=== PATIENT | male | born 1975 | race Caucasian/White ===

== ENCOUNTER 2021-08-03 13:51 | Inpatient (IN) | payer OTHER ==
[2021-08-03 15:28] VITALS: BMI 30.4
[2021-08-03] MEDS ORDERED: MAG HYDROX/AL HYDROX/SIMETH 30 ML UNIT-DOSE CUP PO PRN (15:43)
[2021-08-03] MEDS ORDERED: METHOCARBAMOL 500 MG TABLET PO PRN (15:43)
[2021-08-03] MEDS ORDERED: ACETAMINOPHEN 325 MG TABLET (FP) PO PRN ×2 (15:43)
[2021-08-03] MEDS ORDERED: BENZOCAINE/MENTHOL (CHLORASEPTIC ) LOZENGE MM PRN (15:43)
[2021-08-03] MEDS ORDERED: IBUPROFEN 600 MG TABLET (FP) PO PRN (15:43)
[2021-08-03] MEDS ORDERED: DICYCLOMINE HCL 10 MG CAPSULE PO PRN (15:43)
[2021-08-03] MEDS ORDERED: ONDANSETRON *ODT* 4 MG TABLET SL PRN (15:43)
[2021-08-03] MEDS ORDERED: BISMUTH SUBSALICYLATE 524 MG/30 ML PO PRN (15:43)
[2021-08-03] MEDS ORDERED: MAGNESIUM CITRATE 300 ML BOTTLE PO PRN (15:43)
[2021-08-03] MEDS ORDERED: MAGNESIUM HYDROX 2400MG/30ML ORAL SUSPENSION 30 ML CUP PO PRN (15:43)
[2021-08-03] MEDS ORDERED: BUPRENORPHINE HCL 150 MCG, BUPRENORPHINE HCL 75 MCG BC PRN (15:43)
[2021-08-03] MEDS ORDERED: LOPERAMIDE HCL 2 MG CAPSULE PO PRN (15:43)
[2021-08-03] MEDS ORDERED: IBUPROFEN 400 MG TABLET (FP) PO PRN (15:43)
[2021-08-03] MEDS ORDERED: diazePAM 5 MG TABLET PO PRN (15:43)
[2021-08-03] MEDS ORDERED: NICOTINE 10 MG CARTRIDGE (INHALER) IH PRN (15:43)
[2021-08-03] MEDS ORDERED: cloNIDine HCL 0.1 MG TABLET PO ONE (16:30)
[2021-08-03] MEDS ORDERED: BUPRENORPHINE HCL 150 MCG, BUPRENORPHINE HCL 75 MCG BC ONE (17:00)
[2021-08-03 17:30] VITALS: BP 138/80; PULSE 73; TEMP 97.8
[2021-08-03] MEDS ORDERED: BUPRENORPHINE HCL 150 MCG FILM BC ONE (17:43)
[2021-08-03] MEDS ORDERED: BUPRENORPHINE HCL 75 MCG FILM BC ONE (17:44)
[2021-08-03] MEDS: hydrOXYzine PAMOATE 25 MG CAPSULE (FP) PO SCH ×2 (17:53→17:58)
[2021-08-03] MEDS ORDERED: cloNIDine HCL 0.1 MG TABLET PO PRN (19:43)
[2021-08-03] MEDS ORDERED: MELATONIN 5 MG TABLETS PO SCH (22:00)
[2021-08-03] MEDS ORDERED: THIAMINE HCL 100 MG TABLET (FP) PO SCH (22:00)
[2021-08-04] MEDS ORDERED: BUPRENORPHINE HCL 150 MCG, BUPRENORPHINE HCL 75 MCG BC PRN
[2021-08-04] MEDS ORDERED: BUPRENORPHINE HCL 150 MCG, BUPRENORPHINE HCL 75 MCG BC SCH (06:00)
[2021-08-04] MEDS ORDERED: PANTOPRAZOLE 40 MG TABLET PO SCH (10:00)
[2021-08-04] MEDS ORDERED: PRENATAL VITAMINS W/ FOLIC ACID TABLET (FP) PO SCH (10:00)
[2021-08-05] MEDS ORDERED: BUPRENORPHINE HCL 450 MCG FILM BC SCH (06:00)
[2021-08-06] MEDS ORDERED: BUPRENORPHINE/NALOXONE 4 MG/1 MG FILM PACKET SL SCH (06:00)
[2021-08-07] MEDS ORDERED: BUPRENORPHINE/NALOXONE 8 MG/2 MG FILM PACKET SL ONE (06:00)
== END 2021-08-03 19:49 | disposition left against medical advice (07) | DRG 894 ==
LOC: YASAS 13:51 → Y6N 15:24
PROVIDERS: ADMIT Allergy & Immunology; ATTEND Surgery
PROC: HZ2ZZZZ Detoxification Services for Substance Abuse Treatment (ICD-10-PCS; principal; 2021-08-03)
DX: F11.23 Opioid dependence with withdrawal (principal); F14.20 Cocaine dependence, uncomplicated; F15.20 Other stimulant dependence, uncomplicated; F17.210 Nicotine dependence, cigarettes, uncomplicated; Z28.310 Unvaccinated for COVID-19; Z28.9 Immunization not carried out for unspecified reason
CPT/HCPCS: 87811; C9803-CS; J0735; U0003; U0005

== ENCOUNTER 2021-08-03 21:46 | Inpatient (IN) | payer OTHER ==
[2021-08-03] MEDS ORDERED: ONDANSETRON *ODT* 4 MG TABLET SL PRN (23:05)
[2021-08-03] MEDS ORDERED: IBUPROFEN 400 MG TABLET (FP) PO PRN (23:05)
[2021-08-03] MEDS ORDERED: BENZOCAINE/MENTHOL (CHLORASEPTIC ) LOZENGE MM PRN (23:05)
[2021-08-03] MEDS ORDERED: ACETAMINOPHEN 325 MG TABLET (FP) PO PRN ×2 (23:05)
[2021-08-03] MEDS ORDERED: METHOCARBAMOL 500 MG TABLET PO PRN (23:05)
[2021-08-03] MEDS ORDERED: MAGNESIUM HYDROX 2400MG/30ML ORAL SUSPENSION 30 ML CUP PO PRN (23:05)
[2021-08-03] MEDS ORDERED: MAG HYDROX/AL HYDROX/SIMETH 30 ML UNIT-DOSE CUP PO PRN (23:05)
[2021-08-03] MEDS ORDERED: NICOTINE POLACRILEX 2 MG GUM BUC PRN (23:05)
[2021-08-03] MEDS ORDERED: IBUPROFEN 600 MG TABLET (FP) PO PRN (23:05)
[2021-08-03] MEDS ORDERED: NICOTINE 10 MG CARTRIDGE (INHALER) IH PRN (23:05)
[2021-08-03] MEDS ORDERED: BISMUTH SUBSALICYLATE 524 MG/30 ML PO PRN (23:05)
[2021-08-03] MEDS ORDERED: MAGNESIUM CITRATE 300 ML BOTTLE PO PRN (23:05)
[2021-08-03] MEDS ORDERED: DICYCLOMINE HCL 10 MG CAPSULE PO PRN (23:05)
[2021-08-03] MEDS ORDERED: hydrOXYzine PAMOATE 25 MG CAPSULE (FP) PO PRN (23:05)
[2021-08-03] MEDS ORDERED: LOPERAMIDE HCL 2 MG CAPSULE PO PRN (23:05)
[2021-08-04] MEDS: MELATONIN 5 MG TABLETS PO PRN ×2 (02:25→22:51)
[2021-08-04] MEDS ORDERED: cloNIDine HCL 0.1 MG TABLET PO PRN (09:46)
[2021-08-04 10:20] LABS: HEMATOCRIT 44.1 % (35.4-49); MCH 25.1 pg (25.7-33.7); MCHC 31.7 g/dl (32.0-35.9); MEAN PLT VOLUME 8.7 fl (7.5-11.1); PLATELET COUNT 376 10^3/uL (134-434); RBC 5.59 M/mm3 (4.00-5.60); RDW 18.4 % (11.9-15.9); WHITE BLOOD COUNT 9.4 K/mm3 (4.0-10.0)
[2021-08-04] MEDS ORDERED: methaDONE HCL 10 MG TABLET (FOR DETOX USE ONLY) PO ONE (10:30)
[2021-08-04] MEDS: PRENATAL VITAMINS W/ FOLIC ACID TABLET (FP) PO SCH (10:34)
[2021-08-04] MEDS: PANTOPRAZOLE 40 MG TABLET PO SCH (10:34)
[2021-08-04 10:36] LABS: BLOOD UREA NITROGEN 5.5 mg/dL (7-18); CALCIUM 8.8 mg/dL (8.5-10.1)
[2021-08-04 10:39] LABS: CREATININE 1.1 mg/dL (0.55-1.3)
[2021-08-04 10:41] LABS: BILIRUBIN,TOTAL 0.7 mg/dL (0.2-1); TOT PROT 6.3 g/dl (6.4-8.2)
[2021-08-04] MEDS: diazePAM 5 MG TABLET PO PRN (18:07)
[2021-08-04] MEDS: THIAMINE HCL 100 MG TABLET (FP) PO SCH (22:51)
[2021-08-05] MEDS ORDERED: methaDONE HCL 10 MG TABLET (FOR DETOX USE ONLY) ONE (08:58)
[2021-08-05] MEDS: diazePAM 5 MG TABLET PO PRN ×2 (11:08→22:50)
[2021-08-05] MEDS: PANTOPRAZOLE 40 MG TABLET PO SCH (11:08)
[2021-08-05] MEDS: PRENATAL VITAMINS W/ FOLIC ACID TABLET (FP) PO SCH (11:08)
[2021-08-05] MEDS: MELATONIN 5 MG TABLETS PO PRN (22:50)
[2021-08-05] MEDS: THIAMINE HCL 100 MG TABLET (FP) PO SCH (22:50)
[2021-08-06] MEDS ORDERED: methaDONE HCL 10 MG TABLET (FOR DETOX USE ONLY) PO ONE (10:00)
[2021-08-06] MEDS: PRENATAL VITAMINS W/ FOLIC ACID TABLET (FP) PO SCH (10:52)
[2021-08-06] MEDS: diazePAM 5 MG TABLET PO PRN ×3 (10:53→22:40)
[2021-08-06] MEDS: PANTOPRAZOLE 40 MG TABLET PO SCH (10:53)
[2021-08-06] MEDS: MELATONIN 5 MG TABLETS PO PRN (22:40)
[2021-08-06] MEDS: THIAMINE HCL 100 MG TABLET (FP) PO SCH (22:40)
[2021-08-07] MEDS ORDERED: methaDONE HCL 10 MG TABLET (FOR DETOX USE ONLY) ONE (08:51)
[2021-08-07] MEDS: PRENATAL VITAMINS W/ FOLIC ACID TABLET (FP) PO SCH (09:36)
[2021-08-07] MEDS: PANTOPRAZOLE 40 MG TABLET PO SCH (09:36)
[2021-08-07] MEDS: diazePAM 5 MG TABLET PO PRN ×3 (09:37→22:39)
[2021-08-07] MEDS: THIAMINE HCL 100 MG TABLET (FP) PO SCH (22:48)
[2021-08-07] MEDS: MELATONIN 5 MG TABLETS PO PRN (22:48)
[2021-08-08] MEDS ORDERED: methaDONE HCL 10 MG TABLET (FOR DETOX USE ONLY) PO ONE (10:00)
[2021-08-08] MEDS: PANTOPRAZOLE 40 MG TABLET PO SCH (10:43)
[2021-08-08] MEDS: PRENATAL VITAMINS W/ FOLIC ACID TABLET (FP) PO SCH (10:44)
[2021-08-08] MEDS: THIAMINE HCL 100 MG TABLET (FP) PO SCH (22:49)
[2021-08-08] MEDS: MELATONIN 5 MG TABLETS PO PRN (22:49)
[2021-08-09] MEDS: PRENATAL VITAMINS W/ FOLIC ACID TABLET (FP) PO SCH (09:20)
[2021-08-09] MEDS: PANTOPRAZOLE 40 MG TABLET PO SCH (09:20)
[2021-08-09 09:37] VITALS: BP 120/68; PULSE 90; TEMP 98
== END 2021-08-09 09:45 | disposition home or self-care (01) | DRG 895 ==
LOC: YASAS 21:46 → UNDOADMIN 23:01 → Y3N 23:01
PROVIDERS: ADMIT Allergy & Immunology; ATTEND Surgery
PROC: HZ42ZZZ Group Counseling for Substance Abuse Treatment, Cognitive-Behavioral (ICD-10-PCS; principal; 2021-08-03)
DX: F11.20 Opioid dependence, uncomplicated (principal); U07.1 COVID-19; F14.10 Cocaine abuse, uncomplicated; F17.210 Nicotine dependence, cigarettes, uncomplicated; K21.9 Gastro-esophageal reflux disease without esophagitis; E55.9 Vitamin D deficiency, unspecified; M54.59 Other low back pain; G89.29 Other chronic pain; Z28.310 Unvaccinated for COVID-19; Z98.84 Bariatric surgery status; Z87.438 Personal history of other diseases of male genital organs
CPT/HCPCS: 36415; 80053; 85027; 86780; 87811; C9803-CS; J0735; U0003; U0005